=== PATIENT | female | born 1940 | race Caucasian/White ===

== ENCOUNTER 2016-04-04 10:03 | Day surgery (SDC) | payer MEDICARE ==
[2016-04-04] MEDS ORDERED: PROPOFOL 10 MG/ML VIAL IV ONE ×2 (14:00→14:46)
[2016-04-04] MEDS ORDERED: LIDOCAINE 2% MDV (20MG/ML) 20ML VIAL IV ONE (14:46)
--- NOTE | 2016-04-07 08:20 | Operative Note ---
DATE OF SURGERY: SURGEON: Joana Hernandez MD OPERATION: ESOPHAGOGASTRODUODENOSCOPY. INDICATIONS: This is a 75-year-old female with persistent nausea who presented for esophagogastroduodenoscopy. POSTOPERATIVE DIAGNOSES: 1. Normal esophagus. 2. Multiple gastric polyps that were removed by snare cautery. 3. Mild gastritis. 4. Normal duodenum. ANESTHESIA: Sedation is per Anesthesia. Pulse oximetry was monitored throughout the procedure to maintain O2 saturation of 90% or greater. Supplemental oxygen was administered via nasal cannula. Cardiac and vital signs were monitored throughout the duration of the procedure, and they were stable. The procedure of esophagogastroduodenoscopy and risks and benefits of the procedure, including the risk of bleeding and perforation, among others, were explained to the patient who voiced understanding and desired to have the procedure done. Physical examination was performed, and the patient was found stable for sedation. PROCEDURE: The patient was placed in the left lateral position. Sedation was initiated. A plastic bite block was inserted into the oral cavity. The Olympus [id number] gastroscope was introduced into the oral cavity and advanced to the proximal esophagus without difficulty. The esophageal mucosa was carefully examined upon introduction of the gastroscope. The proximal, mid, and distal esophageal mucosa appeared normal. The gastroscope was then advanced into the stomach, and surveillance of the stomach revealed mild gastric body and antral erythema but no ulcers were noted. There were multiple 5-8 mm sessile polyps that were noted in the gastric body and gastric fundus. There were no other lesions noted. The gastroscope was then advanced to the descending duodenum without difficulty. The duodenal bulb and descending duodenum appeared normal. The gastroscope was then withdrawn into the stomach and retroflexion was performed. There were no other lesions noted. Multiple duodenal and gastric biopsies were obtained. The gastric polyps were removed with snare cautery with no immediate complications. The gastroscope was then withdrawn while carefully examining the gastric and esophageal mucosa and no other lesions were noted. She remained with stable vital signs and was transferred to the recovery room. RECOMMENDATIONS: 1. She is to continue her proton pump inhibitors. 2. We will see her back for repeat endoscopy in about 8-12 weeks to assess healing of the post polypectomy sites. Thank you for allowing me to participate in the care of your patient. Joana Hernandez MD CC: Dr. Fabian KELLY
== END 2016-04-04 12:30 | disposition home or self-care (01) ==
LOC: HOP 10:03
PROVIDERS: ATTEND Internal Medicine Gastroenterology
DX: K31.7 Polyp of stomach and duodenum (principal); K29.70 Gastritis, unspecified, without bleeding; E78.00 Pure hypercholesterolemia, unspecified; I10 Essential (primary) hypertension; M06.9 Rheumatoid arthritis, unspecified

== ENCOUNTER 2016-08-01 10:32 | Day surgery (SDC) | payer MEDICARE ==
[2016-08-01] MEDS ORDERED: LIDOCAINE 2% MDV (20MG/ML) 20ML VIAL IV ONE (14:02)
[2016-08-01] MEDS ORDERED: PROPOFOL 10 MG/ML VIAL IV ONE (14:02)
--- NOTE | 2016-08-04 10:26 | Operative Note ---
DATE OF SURGERY: 08/01/2016 SURGEON: Joana Hernandez MD OPERATION: ESOPHAGOGASTRODUODENOSCOPY. INDICATIONS: This is a 75-year-old female with history of gastric polyps for which she had a polypectomy and now presents for repeat esophagogastroduodenoscopy to assess healing of the ulcer polypectomy sites. ANESTHESIA: Sedation is per Anesthesia. Pulse oximetry was monitored throughout the procedure to maintain O2 saturation of 90% or greater. Supplemental oxygen was administered via nasal cannula. Cardiac and vital signs were monitored throughout the duration of the procedure, and they were stable. The standard procedure of esophagogastroduodenoscopy and risks and benefits of the procedure, including the risk of bleeding and perforation, among others, were explained to the patient who voiced understanding and desired to have the procedure done. Physical examination was performed, and the patient was found stable for sedation. PROCEDURE: The patient was placed in the left lateral position. Anesthesia was initiated. A plastic bite block was inserted into the oral cavity. The Olympus [id number] gastroscope was then placed into the posterior oropharynx and advanced to the proximal esophagus without difficulty. The esophageal mucosa was carefully examined upon introduction of the gastroscope. The proximal, mid, and distal esophageal mucosa appeared normal. The gastroscope was then advanced into the stomach, and surveillance of the stomach revealed mild erythema along the gastric body and antrum but no ulcers were noted. There were diminutive gastric fundal polyps that were noted but they were not removed. The gastroscope was then advanced to the descending duodenum without difficulty. The duodenal bulb and descending duodenum appeared normal. The gastroscope was then withdrawn into the stomach and retroflexion was performed. There were no other lesions noted. The gastroscope was then straightened and withdrawn while carefully examining the gastric and esophageal mucosa. No other lesions noted. She remained with stable vital signs and was transferred to the recovery room. RECOMMENDATIONS: 1. She is to continue on her proton pump inhibitor. 2. I would be happy to see her back in the office. Thank you for allowing me to participate in the care of your patient. Joana Hernandez MD CC: Dr. Robert KELLY
== END 2016-08-01 12:17 | disposition home or self-care (01) ==
LOC: HOP 10:32
PROVIDERS: ATTEND Internal Medicine Gastroenterology
DX: Z87.19 Personal history of other diseases of the digestive system (principal); K31.7 Polyp of stomach and duodenum; I10 Essential (primary) hypertension; E78.00 Pure hypercholesterolemia, unspecified

== ENCOUNTER 2016-08-14 12:05 | Emergency (ER) | payer MEDICARE ==
[2016-08-14] MEDS ORDERED: ASPIRIN 81 MG CHEWABLE TABLET PO ONE ×3 (12:09→12:52)
[2016-08-14] MEDS ORDERED: ONDANSETRON HCL IV 4 MG/2 ML VIAL IVP ONE (12:19)
--- NOTE | 2016-08-14 12:20 | Emergency Department Record ---
History of Present Illness - General Stated Complaint: CHEST PAIN Time Seen by Provider: 08/14/16 12:09 Source: Patient - History of Present Illness Initial Comments: The patient was sent to the E.Dept. from the FP office next door. She complains of left sided and substernal chest pain "like I got hit in the chest," 5-6/10 severity which has been constant for 2 weeks. It is associated with nausea, no vomiting, diaphoresis, SOB, or [place]. She states it worsens with exertion, lessens with rest. About 3-4 days ago it also became present in the left upper arm, left neck, and left jaw. She has htn, elevated cholesterol, NO DM, prior DC, or FH. She is currently being treated for a UTI; she thinks she can account for her nausea by the antibiotics she is taking. She sees Dr. Edge as PCP, and Dr. Vance for cardiology. MD Complaint: Chest pain - Related Data Home Medications Medication Instructions Recorded Confirmed Last Taken Amlodipine Besylate [Amlodipine 5 mg PO DAILY 07/20/14 08/14/16 07/19/14 Besylate] Losartan/Hydrochlorothiazide 1 tab PO DAILY 07/20/14 08/14/16 07/19/14 [Losartan-Hctz 50-12.5 mg Tab] Pravastatin Sodium [Pravastatin 20 mg PO DAILY 07/20/14 08/14/16 07/19/14 Sodium] Prednisone [Prednisone] 3 mg PO DAILY 07/20/14 08/14/16 08/14/16 Trazodone HCl [Desyrel] 50 mg PO QHS 07/20/14 08/14/16 07/19/14 Folic Acid 1 mg PO QD tab 03/21/15 08/14/16 08/14/16 Multivitamin [Daily Multiple 1 each PO DAILY tab 03/21/15 08/14/16 08/14/16 Vitamin] Omeprazole 20 mg PO QD cap 03/21/15 08/14/16 Unknown Ergocalciferol (Vitamin D2) 800 unit PO QD tab 07/22/16 08/14/16 08/14/16 [Vitamin D2] Cephalexin [Keflex] 500 mg PO BID 08/14/16 08/14/16 08/14/16 Loratadine [Claritin] 10 mg PO QD tab 08/14/16 08/14/16 08/14/16 Methotrexate Sodium [Methotrexate] 10 mg PO WEEKLY tab 08/14/16 08/14/16 Unknown Sarilumab 200 mg IJ Q2WEEK 08/14/16 08/14/16 Unknown Allergies Allergy/AdvReac Type Severity Reaction Status Date / Time codeine Allergy Intermediate VOMITING Verified 08/14/16 12:19 levofloxacin [From Levaquin] Allergy Intermediate CHEST PAIN Verified 08/14/16 12:19 Sulfa (Sulfonamide AdvReac Mild avoid r/t Verified 08/14/16 12:19 Antibiotics) being on methotrexate Review of Systems Reviewed: No additional complaints except as noted below Constitutional: Reports: As per HPI. Denies: Chills, Fever, Malaise, Night sweats, Weakness, Weight change Eyes: Reports: As per HPI. Denies: Eye discharge, Eye pain, Photophobia, Vision change ENT: Reports: As per HPI. Denies: Congestion, Dental pain, Ear pain, Epistaxis , Hearing loss, Throat pain Respiratory: Reports: As per HPI. Denies: Cough, Dyspnea, Hemoptysis, Stridor, Wheezes Cardiovascular: Reports: As per HPI. Denies: Arrhythmia, Chest pain, Dyspnea on exertion, Edema, Murmurs, Orthopnea, Palpitations, Paroxysmal nocturnal dyspnea, Rheumatic Fever, Syncope Endocrine: Reports: As per HPI. Denies: Fatigue, Heat or cold intolerance, Polydipsia, Polyuria Gastrointestinal: Reports: As per HPI. Denies: Abdominal pain, Constipation, Diarrhea, Hematemesis, Hematochezia, Melena, Nausea, Vomiting Genitourinary: Reports: As per HPI. Denies: Abnormal menses, Discharge, Dyspareunia, Dysuria, Frequency, Hematuria, Incontinence, Retention, Urgency Musculoskeletal: Reports: As per HPI. Denies: Arthralgia, Back pain, Gout, Joint swelling, Myalgia, Neck pain Skin: Reports: As per HPI. Denies: Bruising, Change in color, Change in hair/ nails, Lesions, Pruritus, Rash Neurological: Reports: As per HPI. Denies: Abnormal gait, Confusion, Headache, Numbness, Paresthesias, Seizure, Tingling, Tremors, Vertigo, Weakness Psychiatric: Reports: As per HPI. Denies: Anxiety, Auditory hallucinations, Depression, Homicidal thoughts, Suicidal thoughts, Visual hallucinations Hematological/Lymphatic: Reports: As per HPI. Denies: Anemia, Blood Clots, Easy bleeding, Easy bruising, Swollen glands Past Medical History - SOCIAL HISTORY Smoking Status: Never smoker - RESPIRATORY Hx Respiratory Disorders: Yes Hx Bronchitis: Yes - CARDIOVASCULAR Hx Cardio Disorders: Yes Hx Hypertension: Yes Comment:: high cholestrol - NEURO Hx Neuro Disorders: Yes Hx Headaches: Yes - GI Hx GI Disorders: Yes Hx GI Bleed: Yes Hx Reflux: Yes Hx of Polyps: Yes - Hx Genitourinary Disorders: Yes Hx UTI: Yes - ENDOCRINE Hx Endocrine Disorders: No - MUSCULOSKELETAL Hx Musculoskeletal Disorders: Yes Hx Arthritis: Yes (RA) - PSYCH Hx Psych Problems: No - HEMATOLOGY/ONCOLOGY Hx Hematology/Oncology Disorders: Yes Hx Cancer: Yes Family Medical History Hx Diabetes: Grandparents Physical Exam - General General Appearance: Alert, Oriented x3, Cooperative, No acute distress - Head Head exam: Normal inspection - Eye Eye exam: Normal appearance, PERRL Pupils: Normal accommodation - ENT ENT exam: Normal exam, Mucous membranes moist, Normal external ear exam, Normal orophraynx, TM's normal bilaterally Ear exam: Normal external inspection. negative: External canal tenderness Nasal Exam: Normal inspection. negative: Discharge, Sinus tenderness Mouth exam: Normal external inspection, Tongue normal Teeth exam: Normal inspection. negative: Dental caries Throat exam: Normal inspection. negative: Tonsillar erythema, Tonsillar exudate - Neck Neck exam: Normal inspection, Full ROM. negative: Tenderness - Respiratory Respiratory exam: Normal lung sounds bilaterally, Prolonged expiratory. negative: Chest wall tenderness, Respiratory distress - Cardiovascular Cardiovascular Exam: Regular rate, Normal rhythm, Normal heart sounds - GI/Abdominal GI/Abdominal exam: Soft, Normal bowel sounds. negative: Tenderness - Rectal Rectal exam: Deferred - exam: Deferred - Extremities Extremities exam: Normal inspection, Full ROM, Normal capillary refill. negative: Calf tenderness, Pedal edema, Tenderness - Back Back exam: Reports: Normal inspection, Full ROM. Denies: Muscle spasm, Rash noted, Tenderness - Neurological Neurological exam: Alert, Normal gait, Oriented X3, Reflexes normal - Psychiatric Psychiatric exam: Normal affect, Normal mood - Skin Skin exam: Dry, Intact, Normal color, Warm Course - Reevaluation(s) Reevaluation #1: DW Dr. Edge who requests 4 hour repeat enzymes and send home if not rising, to see Dr. Vance tomorrow. 08/14/16 13:14 Reevaluation #2: Four hour repeat enzymes are not rising. Will DC patient home with SALAS Vance appointment in specialty clinic tomorrow at 9:30. 08/14/16 17:06 Medical Decision Making - Management Options MDM Management: Additional Work-up Planned (e.g. ADM/Transfer/OP Study) (Out patient Cardiology Clinic consult Dr. Vance 9:30) - Data Complexity MDM Data: Labs Ordered and/or Reviewed, X-Ray Ordered and/or Reviewed (CXR two view: hyperinflated lungs, bi-apical thickening, no acute process. Per radiologist.), EKG Ordered and/or Reviewed - Lab Data Result diagrams: 08/14/16 12:05 08/14/16 12:05 Disposition Disposition: Discharge Clinical Impression: Chest pain Qualifiers: Chest pain type: precordial pain Qualified Code(s): R07.2 - Precordial pain Disposition: Home, Self-Care Condition: (1) Good Instructions: Chest Pain (ED) Additional Instructions: Home rest. Continue present meds. Follow tomorrow with Dr. Pinky MARINA Cardiology here in [facility]. Referrals: [facility] Special[facility] [Provider Group] RADAH VANCE [DOCTOR OF OSTEOPATH] - Forms: Patient Portal Access
[2016-08-14 12:34] LABS: BASO % 0.2 % (0-6); EOS % 0.9 % (0-6); GRAN % 58.7 % (47-80); HEMOGLOBIN 13.4 gm/dl (11.6-16.0); LYMPH % 26.6 % (16-45); MEAN CELL VOLUME 96.7 fl (81-97); MEAN CORPUSCULAR HEMOGLOBIN 31.6 pg (27-33); MEAN CORPUSCULAR HGB CONC 32.7 g/dl (32-36); MEAN PLATELET VOLUME 12.2 fl (7.4-10.4); MONO % 13.6 % (0-9); PLATELET COUNT 177 K/uL (130-400); RED BLOOD COUNT 4.24 M/uL (3.80-5.40); RED CELL DISTRIBUTION WIDTH 13.4 % (11.5-14.5); WHITE BLOOD COUNT W/O DIFF 5.3 K/uL (4.2-12.2)
[2016-08-14 12:45] LABS: ANION GAP 5.7 (7-16); BLOOD UREA NITROGEN 15 mg/dL (7-17); CARBON DIOXIDE 29.3 mmol/L (22-30); CREATINE PHOSPHOKINASE 66 U/L (30-135); CREATININE 0.8 mg/dL (0.52-1.04); EST GLOMERULAR FILTRATION RATE > 60 ml/min; GLUCOSE,RANDOM 95 mg/dL (70-110)
[2016-08-14 12:55] LABS: D-DIMER 0.42 mg/L FEU (0-0.59); INR 0.99; PARTIAL THROMBOPLASTIN TIME 22.6 SECONDS (24.5-39.1); PROTHROMBIN TIME (PATIENT) 11.2 SECONDS (9.5-12.1)
[2016-08-14 12:58] LABS: CKMB 0.9 ug/L (0-6); TROPONIN I < 0.012 ng/mL (0.00-0.034)
[2016-08-14 16:25] LABS: CKMB 0.8 ug/L (0-6)
[2016-08-14 16:26] LABS: TROPONIN I < 0.012 ng/mL (0.00-0.034)
--- NOTE | 2016-08-20 04:29 | RADIOLOGY REPORT ---
EXAM: CHEST 2 VIEWS HISTORY: DIFFICULTY IN BREATHING. TECHNIQUE: Frontal and lateral views of the chest were performed. FINDINGS: Heart size normal. Lungs are hyperinflated. There is mild biapical pleural thickening. No infiltrate or pleural effusion. The osseous structures are normal. IMPRESSION: HYPERINFLATED LUNGS. MILD BIAPICAL PLEURAL THICKENING. JOB NUMBER: [id number] MTDD
== END 2016-08-14 17:24 | disposition home or self-care (01) ==
LOC: ER 12:05
DX: R07.2 Precordial pain (principal); R11.0 Nausea; R06.02 Shortness of breath; I10 Essential (primary) hypertension
CPT/HCPCS: 99284 ×2; 96374; 82550; 85025; 85730; 85610; 82553; 84484; 80048; 85379; 83880; 71020; 93005; 93010; J2405